=== PATIENT | female | born 1980 | race American Indian/Alaskan Native ===

== ENCOUNTER 2021-08-21 22:24 | Inpatient (IN) | payer MEDICAID ==
[2021-08-21] MEDS ORDERED: OXYTOCIN 10 UNIT/1 ML INJ IM PRN (22:30)
[2021-08-21] MEDS ORDERED: LACTATED RINGERS 1,000 ML IV SCH (22:30)
[2021-08-21] MEDS ORDERED: TERBUTALINE 1 MG/1 ML INJ SUB-Q PRN (22:30)
[2021-08-21] MEDS ORDERED: ACETAMINOPHEN 325 MG TAB PO PRN (22:30)
[2021-08-21] MEDS ORDERED: miSOPROStol 200 MCG TAB PR PRN (22:30)
[2021-08-21] MEDS ORDERED: BUTORPHANOL 2 MG/1 ML INJ IV PRN ×2 (22:30)
[2021-08-21] MEDS ORDERED: MINERAL OIL 30 ML ORAL LIQD PO PRN (22:30)
[2021-08-21] MEDS ORDERED: CARBOPROST TROMETHAMINE 250 MCG/1 ML INJ IM PRN (22:30)
[2021-08-21] MEDS ORDERED: METHYLERGONOVINE MALEATE 0.2 MG/ML VIAL IM PRN (22:30)
[2021-08-21] MEDS ORDERED: ePHEDrine SULFATE 50 MG/1 ML INJ IV PRN (22:30)
[2021-08-21] MEDS ORDERED: LIDOCAINE (2%) 20 MG/1 ML VIAL 20 ML MDV INFILTRATI ONE (22:30)
[2021-08-21] MEDS ORDERED: LOPERAMIDE 2 MG CAP PO PRN (22:30)
[2021-08-21] MEDS ORDERED: fentaNYL 100 MCG/2 ML INJ IV PRN (22:30)
[2021-08-21] MEDS ORDERED: PROMETHAZINE 25 MG TAB PO PRN (22:33)
[2021-08-21] MEDS ORDERED: PROMETHAZINE 25 MG RECT SUPP PR PRN (22:33)
[2021-08-21] MEDS ORDERED: ONDANSETRON 4 MG/2 ML INJ IV PRN (22:33)
[2021-08-21] MEDS ORDERED: WITCH HAZEL/ GLYCERIN PAD TP PRN (22:33)
[2021-08-21] MEDS ORDERED: MAGNESIUM HYDROXIDE (MOM) ORAL LIQD UDC PO PRN (22:33)
[2021-08-21] MEDS ORDERED: LANOLIN/ZINC/DIMETHICONE (LANSINOH) 7 GM TP PRN (22:33)
[2021-08-21] MEDS ORDERED: diphenhydrAMINE 25 MG CAP PO PRN (22:33)
--- NOTE | 2021-08-21 22:42 | Procedure Note ---
OB Delivery Note - Delivery Date of Delivery: 08/21/21 Estimated blood loss: 100cc - Vaginal Delivery presentation: vertex Intrapartum events: other(please specify) (Pt birthed preciptously in parking lot after SROM) Delivery induction: none Delivery monitor: none Route of delivery: Delivery placenta: spontaneous Delivery cord: 3 umbilical vessels Episiotomy: none Delivery laceration: none Anesthesia: none Delivery comments: Pt found to be delivering precipitously in parking lot after SROM. RN met pt outside to escort her in and pt stated "I am pushing" and RN helped male . Cherelle Soria CNM and Nato BUCKM at nurse's station and came to assist. Cord clamped and cut with tools from precip kit by CNM and baby taken to nursery for warming and assessment. Placenta birthed spontaneously and intact. No lacerations noted. Fundus firm and bleeding scant. Infant 9#6. Doyle WEATHERSM was notified and was present during delivery of the placenta. - A at 1 minute: 8 at 5 minutes: 9 Gender: Male
[2021-08-21] MEDS ORDERED: OXYTOCIN DRIP 30 UNITS/500 ML BAG IV SCH ×2 (23:00)
--- NOTE | 2021-08-21 23:28 | History and Physical Report ---
History of Present Illness Date of examination: 08/21/21 Date of admission: 08/21/21 22:27 Chief complaint: c/o uc times several hours History of present illness: 41 y/o presented to triage @ 40 2/7 wks with c/o uc times several hours. She denied VB or LOF and admitted to active FM. Pt initiated her pnc @ [facility] location @ approx 15 wks. She was co managed by [facility] for GDM, PIH, and mobid obesity. She has a hx of macrosomia with last baby @ 11 lbs. Pt states her blood sugars were diet controlled and she was taking Labetalol bid for hypertension. She denied any other med, surg, social hx and admitted to a family hx of cancer. SVE in triage was 0/0/-4 per nurse and breech per us. As nurse was escorting pt to the car from triage, pt delivered the baby vertex position while kneeling at the car door per nurse. Pt was escorted to L&D via stretcher by staff. Past History Past Medical History: other (GDM, PIH) Past Surgical History: no surgical history Family/Genetic History: cancer Social history: full code - Obstetrical History Expected Date of Delivery: 08/19/21 Actual Gestation: 40 Week(s) 2 Day(s) : 4 Para: 3 Hx # Term Pregnancies: 3 Number of Pregnancies: 0 Spontaneous Abortions: 0 Induced : 0 Number of Living Children: 3 Medications and Allergies Allergies Allergy/AdvReac Type Severity Reaction Status Date / Time No Known Allergies Allergy Unverified 08/21/21 18:59 Active Meds: Active Medications Acetaminophen (Acetaminophen 325 Mg Tab) 650 mg PO Q4H PRN PRN Reason: Pain, Mild (1-3) Bisacodyl (Bisacodyl 10 Mg Rect Supp) 10 mg MA BID PRN PRN Reason: Constipation Butorphanol Tartrate (Butorphanol 2 Mg/1 Ml Inj) 2 mg IV Q2H PRN PRN Reason: Pain , Severe (7-10) Butorphanol Tartrate (Butorphanol 2 Mg/1 Ml Inj) 1 mg IV Q2H PRN PRN Reason: Pain, Moderate(4-6) LABOR PAIN Carboprost Tromethamine (Carboprost Tromethamine 250 Mcg/1 Ml Inj) 250 mcg IM ONCE PRN PRN Reason: Uterine Bleeding Diphenhydramine HCl (Diphenhydramine 25 Mg Cap) 25 mg PO Q6H PRN PRN Reason: Itching Ephedrine Sulfate (Ephedrine Sulfate 50 Mg/1 Ml Inj) 10 mg IV Q2M PRN PRN Reason: Hypotension Fentanyl (Fentanyl 100 Mcg/2 Ml Inj) 100 mcg IV Q2H PRN PRN Reason: Pain,Severe (7-10) LABOR PAIN Oxytocin/Sodium Chloride (Pitocin/Ns 30 Unit/500ml) 30 units in 500 mls @ 2 mls/hr IV TITR SEKOU; Protocol Lactated Ringer's (Lactated Ringers) 1,000 mls @ 125 mls/hr IV DIRECT SEKOU Oxytocin/Sodium Chloride (Pitocin/Ns 30 Unit/500ml) 30 units in 500 mls @ 40 mls/hr IV TITR SEKOU; Protocol Ibuprofen (Ibuprofen 600 Mg Tab) 600 mg PO Q6HR SEKOU Loperamide HCl (Loperamide 2 Mg Cap) 2 mg PO ONCE PRN PRN Reason: give with Hemabate Magnesium Hydroxide (Magnesium Hydroxide (Mom) Oral Liqd Udc) 30 ml PO HS PRN PRN Reason: Constipation Methylergonovine Maleate (Methylergonovine Maleate 0.2 Mg/Ml Vial) 0.2 mg IM ONCE PRN PRN Reason: Uterine Bleeding Mineral Oil (Mineral Oil 30 Ml Oral Liqd) 30 ml PO QHS PRN PRN Reason: Constipation Misoprostol (Misoprostol 200 Mcg Tab) 800 mcg MA ONCE PRN PRN Reason: Uterine Bleeding Multi-Ingredient Ointment (Lanolin/Zinc/Dimethicone (Lansinoh) 7 Gm) 1 applic TP PRN PRN PRN Reason: Sore Nipples Ondansetron HCl (Ondansetron 4 Mg/2 Ml Inj) 4 mg IV Q8H PRN PRN Reason: Nausea And Vomiting Oxycodone/Acetaminophen (Oxycodone /Acetaminophen 5-325mg Tab) 1 tab PO Q6H PRN PRN Reason: Pain, Moderate (4-6) Oxytocin (Oxytocin 10 Unit/1 Ml Inj) 10 unit IM ONCE PRN PRN Reason: Uterine Bleeding Promethazine HCl (Promethazine 25 Mg Rect Supp) 25 mg MA Q6H PRN PRN Reason: Nausea And Vomiting Promethazine HCl (Promethazine 25 Mg Tab) 25 mg PO Q6H PRN PRN Reason: Nausea And Vomiting Sodium Chloride (Sodium Chloride 0.9% 10 Ml Flush Syringe) 10 ml IV PRN NR Stop: 08/22/21 22:59 Terbutaline Sulfate (Terbutaline 1 Mg/1 Ml Inj) 0.25 mg SUB-Q ONCE PRN PRN Reason: Hyperstimulation/Hypertonicity Witch Charo/Glycerin (Witch Charo/ Glycerin Pad) 1 each TP PRN PRN PRN Reason: Hemorrhoid/cleansing/soothing Review of Systems All systems: negative Eyes: deferred Ears, nose, mouth and throat: deferred Cardiovascular: high blood pressure Breasts: normal Genitourinary: normal appearance Rectal Exam: normal exam-external/orifice - Vital Signs Vital signs: Vital Signs Pulse Pulse Ox 84 97 08/21/21 22:27 08/21/21 22:27 Temp Pulse Resp BP Pulse Ox 79 98 08/21/21 23:12 08/21/21 23:12 - Physical Exam Breasts: Positive: normal Abdomen: Positive: normal appearance, soft, normal bowel sounds Genitourinary (Female): Positive: normal external genitalia, normal perenium Vulva: both: normal Vagina: Positive: normal moisture Uterus: Positive: enlarged, normal contour Adnexa: both: normal Anus/Rectum: Positive: normal perianal skin Extremities: Positive: normal Results All other labs normal. Assessment and Plan A: IUP@ 40 2/7 wks GDM diet controlled PIH Morbid obesity Neg GBS per pt Refused Pitocin P: Admit to L&D Deliver placenta PIH labs FSBS once Monitor per L&D protocal Pain meds as needed Continue Labetalol Obtain MR from [facility] in am Transfer to pp when stable
[2021-08-22 00:21] LABS: Hematocrit 38.9 % (30.3-42.9); Hemoglobin 13.4 gm/dl (10.1-14.3); Mean Corpuscular HGB Conc 34 % (30-34); Mean Corpuscular Volume 84 fl (79-97); Platelet Count 233 K/mm3 (140-440); Red Blood Count 4.61 M/mm3 (3.65-5.03); Red Cell Distribution Width 15.1 % (13.2-15.2)
[2021-08-22 00:41] LABS: Alanine Aminotransferase 11 units/L (7-56)
[2021-08-22] MEDS: IBUPROFEN 600 MG TAB PO SCH ×4 (01:04→17:14)
[2021-08-22 01:55] LABS: Uric Acid 5.6 mg/dL (3.5-7.6)
[2021-08-22] MEDS: oxyCODONE /ACETAMINOPHEN 5-325MG TAB PO PRN ×3 (02:42→23:20)
[2021-08-22 03:38] LABS: Bilirubin,Urine NEG (Negative); Blood,Urine LG (Negative); Urobilinogen,Urine < 2.0 mg/dL (<2.0)
[2021-08-22 03:39] LABS: Color,Urine Red (Yellow); Protein,Urine >500 mg/dL (Negative); RBC,Urine > 182.0 /HPF (0.0-6.0)
--- NOTE | 2021-08-22 12:21 | Progress Note ---
Assessment and Plan A: day 1 S/P precipitous . Morbid obesity. GDM and PIH--delivered. PUI: refused coronavirus test. P: Patient to ambulate. Continue routine care. Subjective - Subjective Date of service: 08/22/21 Principal diagnosis: day 1 S/P precipitous Interval history: Doing well; no complaints. Patient reports: appetite normal, voiding normally, pain well controlled, flatus, ambulating normally, no dizzy ambulation, no nauseated [place]: doing well Objective - Vital Signs Latest vital signs: Vital Signs Temp Pulse Resp BP BP Pulse Ox 08/22/21 08:10 98.0 F 83 18 104/48 97 08/22/21 04:35 98.4 F 95 H 18 103/48 95 08/22/21 02:42 18 08/22/21 01:04 18 08/22/21 00:45 98.5 F 85 20 130/65 98 08/22/21 00:19 78 98 08/22/21 00:14 79 98 08/22/21 00:09 93 H 96 08/22/21 00:05 78 135/66 91 08/22/21 00:04 79 98 08/21/21 23:32 89 97 08/21/21 23:27 77 97 08/21/21 23:22 74 98 08/21/21 23:18 98.5 F 84 12 133/82 100 08/21/21 23:17 72 97 08/21/21 23:12 79 98 08/21/21 23:07 78 98 08/21/21 23:02 83 97 08/21/21 22:57 79 97 08/21/21 22:52 79 96 08/21/21 22:47 83 96 08/21/21 22:42 78 95 08/21/21 22:37 82 97 08/21/21 22:32 83 95 08/21/21 22:27 84 97 Intake and Output 08/21/21 08/22/21 08/22/21 23:59 07:59 15:59 Intake Total 240 Output Total 300 Balance -60 Intake: Intake, Free Water 240 Output: Urine 300 Void 300 Other: Total, Output Amount 300 # Voids Void 1 Weight 131.542 kg - Exam Breasts: Present: normal, other (patient nursing baby) Abdomen: Present: normal appearance, soft, normal bowel sounds. Absent: distention, tenderness, guarding, rigidity Uterus: Present: firm, other (FH at 1 FB below umbilicus). Absent: bogginess, tenderness Extremities: Absent: tenderness - Labs Labs: Abnormal lab results 08/21/21 08/21/21 08/22/21 Range/Units 03:05 23:52 00:16 Creatinine 0.5 L (0.6-1.2) mg/dL POC Glucose 124 H (70-105) mg/dL Lactate Dehydrogenase 184 H (91-180) units/L Urine WBC (Auto) 15.0 H (0.0-6.0) /HPF
[2021-08-22 19:52] LABS: Hematocrit 37.8 % (30.3-42.9); Hemoglobin 12.7 gm/dl (10.1-14.3)
[2021-08-23] MEDS: IBUPROFEN 600 MG TAB PO SCH ×2 (00:38→06:40)
[2021-08-23] MEDS: oxyCODONE /ACETAMINOPHEN 5-325MG TAB PO PRN (05:35)
--- NOTE | 2021-08-23 08:57 | Progress Note ---
Assessment and Plan - Patient Problems (1) Status post vaginal delivery Current Visit: Yes Status: Acute Plan to address problem: Meeting goals now day 2. Bleeding well controlled. likely to go home today. --Anticipate discharge home today. Subjective - Subjective Date of service: 08/23/21 Principal diagnosis: day 2 S/P precipitous Interval history: Patient doing well meeting goals patient reports that she does not want to be if the baby is not also being discharged given concerns for jaundice. Patient reports concerns about hitting her pain management at the same time as she is breast-feeding however is breast-feeding every hour. Patient reports: appetite normal, voiding normally, pain well controlled, flatus, ambulating normally [place]: doing well Objective - Vital Signs Latest vital signs: Vital Signs Temp Pulse Resp BP Pulse Ox Pulse Ox 08/23/21 08:25 97 08/23/21 00:10 97.9 F 93 H 16 130/70 97 08/22/21 20:50 97 08/22/21 16:35 97.8 F 96 H 16 102/49 08/22/21 12:15 98.0 F 91 H 16 122/67 Intake and Output 08/22/21 08/23/21 08/23/21 23:59 07:59 15:59 Output Total 350 Balance -350 Output: Urine 350 Void 350 Other: Total, Output Amount 350 # Voids Void 1 - Exam Abdomen: Present: normal appearance, soft, normal bowel sounds Uterus: Present: firm
--- NOTE | 2021-08-23 08:58 | Discharge Summary ---
Providers - Providers Date of Admission: 08/21/21 22:27 Date of discharge: 08/23/21 Attending physician: SHELLY MICHELLE Primary care physician: SHELLY MICHELLE Hospitalization Reason for admission: active labor (precipitous delivery) Delivery: complications: none Discharge diagnosis: IUP at term delivered baby: male Hospital course: Patient had a precipitous vaginal delivery on 08/21/2021. Patient was doing well and meeting goals by day 2. Discharge in good condition. Condition at discharge: Good Disposition: 30 STILL A PATIENT - Discharge Diagnoses (1) Status post vaginal delivery Status: Acute Plan - Provider Discharge Summary Activity: routine Diet: routine Instructions: routine Additional instructions: [] Smoking cessation referral if applicable(refer to patient education folder for contact #) [] Refer to [facility]'s [facility] Center Booklet Call your doctor immediately for: * Fever > 100.5 * Heavy vaginal bleeding ( >1 pad per hour) * Severe persistent headache * Shortness of breath * Reddened, hot, painful area to leg or breast * Drainage or odor from incision. * Keep incision clean and dry at all times and follow doctor's instructions regarding bathing/showering - Follow up plan Follow up: SHELLY MICHELLE MD [Primary Care Provider] - 6 Weeks
[2021-08-23 09:02] VITALS: BP 123/76
== END 2021-08-23 10:30 | disposition home or self-care (01) | DRG 775 ==
LOC: TRG 22:24 → LD 22:26 → TRG 22:27 → LD 22:27 → OB 08-22 01:01
PROVIDERS: ADMIT Obstetrics & Gynecology; ATTEND Obstetrics & Gynecology
PROC: 10E0XZZ Delivery of Products of Conception, External Approach (ICD-10-PCS; principal; 2021-08-21)
DX: O13.4 Gestational [pregnancy-induced] hypertension without significant proteinuria, complicating childbirth (principal); Z3A.40 40 weeks gestation of pregnancy; Z37.0 Single live birth; E66.01 Morbid (severe) obesity due to excess calories; Z68.42 Body mass index [BMI] 45.0-49.9, adult; O99.214 Obesity complicating childbirth; O24.420 Gestational diabetes mellitus in childbirth, diet controlled
CPT/HCPCS: 36415; 59025; 76815; 76819; 81001; 82565; 82962; 83615; 84450; 84460; 84550; 85014; 85018; 85027; 86850; 86900; 86901; 87086; G0378